=== PATIENT | male | born 1985 | race Hispanic/Latino ===

== ENCOUNTER 2018-11-17 10:31 | Emergency (ER) | payer BC, OTHER ==
[~2018-11-17] VITALS: Ht 182.9 cm; Wt 99.8 kg
[~2018-11-17 10:31] MED LIST: CIPRO500 MG PO; ONDANSETRON ODT4 MG PO; OXYCODONE-ACET1 EAC1 PO; PERCOCET 5-3251 EACH PO; PHENERGAN25 MG RC; PROMETHAZINE HC25 MG PR; ZOFRAN ODT4 MG SL; ZOFRAN4 MG PO
[2018-11-17] MEDS ORDERED: PROMETHAZINE HC25 M1 PO (13:07)
[2018-11-17] MEDS ORDERED: ZOFRAN4 MG SL (13:07)
[2018-11-17] MEDS ORDERED: DICYCLOMINE HCL20 MG PO (13:07)
--- NOTE | 2018-11-17 23:19 | EKG ---
[facility] [address] [facility] [place] [address] Signed Sinus bradycardia Minimal voltage criteria for LVH, may be normal variant Borderline ECG No previous ECGs available Confirmed by LIZZETH STEPHENS MD ([id number]) on 11/17/2018 11:19:41 PM Electronically Signed By: LIZZETH STEPHENS MD 11/17/18 2319 PATIENT NAME: JAIMECHANEL Electrocardiogram DATE OF : 89 PHYSICIAN: LIZZETH STEPHENS MD REPORT #: [id number] REPORT IS CONFIDENTIAL AND NOT TO BE RELEASED WITHOUT AUTHORIZATION
== END 2018-11-17 13:35 | disposition home or self-care (01) ==
LOC: ED 10:31
DX: K52.9 Noninfective gastroenteritis and colitis, unspecified (principal); E86.0 Dehydration; S62.616D Displaced fracture of proximal phalanx of right little finger, subsequent encounter for fracture with routine healing; Z87.442 Personal history of urinary calculi
CPT/HCPCS: 73140; 80053; 81001; 83690; 85025; 93005; 93010; 96374; 96375; 99284-25; C9113; J2405; J2550; J7030